=== PATIENT | female | born 1975 | race African-American/Black ===

== ENCOUNTER 2020-10-11 04:16 | Emergency (ER) | payer MEDICAID, OTHER, SELFPAY ==
[~2020-10-11] VITALS: Ht 167.6 cm; Wt 111.0 kg
--- NOTE | 2020-10-11 04:42 | NUR ---
pt reports dr clark (obgyn) drained cyst on parineum area on the 9th. pt reports the lump has returned and is larger. pt resting on [facility], [facility], appears slightly uncomfortable. placed on spo2/bp monitoring, provided warm blankets for comfort, bed in lowest, call light on lap, rails engaged, wctm.
[2020-10-11] MEDS ORDERED: ONDANSETRON ODT 4 MG PO ONE (05:00)
[2020-10-11] MEDS ORDERED: LIDOCAINE 1%-EPI 1:100K, 20ML SQ ONE (05:00)
[2020-10-11] MEDS ORDERED: HYDROmorphone 1 MG/ML, 1ML INJ IM ONE (05:00)
[2020-10-11] MEDS ORDERED: ONDANSETRON ODT 4 MG ONE (05:08)
[2020-10-11] MEDS ORDERED: LIDOCAINE-MPF 1%, 5ML ONE (05:08)
[2020-10-11] MEDS ORDERED: HYDROmorphone 1 MG/ML, 1ML INJ ONE (05:08)
--- NOTE | 2020-10-11 06:08 | NUR ---
RN AT BS FOR I&D FOR PACKING, PT TOLERATED PROCEDURE WELL, NAD, STATES AFTER MEDICATIONS HER PAIN IS ALMOST GONE. PT SITE DRESSED, PT READY FOR DC, DRESSING AT THIS TIME.
[2020-10-11 06:09] VITALS: BP 142/56
== END 2020-10-11 06:20 | disposition home or self-care (01) ==
LOC: ED 06:00
DX: N76.4 Abscess of vulva (principal)
CPT/HCPCS: 56405; 96372; 99284; J1170; Q0162